=== PATIENT | male | born 1985 | race Caucasian/White ===

== ENCOUNTER 2018-07-20 12:56 | Emergency (ER) | payer OTHER ==
[~2018-07-20] VITALS: Ht 177.8 cm; Wt 86.2 kg
--- NOTE | 2018-07-20 13:37 | PHYS DOC ---
Past History Past Medical History: Other Additional Past Medical Histor: chronic back pain Additional Past Surgical Histo: valve replacement and thoracic aneurysm repair Smoking: Non-smoker Alcohol Use: None Drug Use: None Adult General Chief Complaint Chief Complaint: CHEST PAIN HPI HPI Patient is a 33-year-old male presents with left-sided chest pain that began early this morning, worse with exertion as well as deep breaths. Denies any recent PE risk factors. 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 Patient denies any lower extremities swelling. Denies any cough. Denies any fever. He shouldn't has taken no medicines to help with discomfort. No nausea, vomiting, diaphoresis.[] Review of Systems Review of Systems Constitutional: Denies fever or chills [] Eyes: Denies change in visual acuity, redness, or eye pain [] HENT: Denies nasal congestion or sore throat [] Respiratory: Denies cough or shortness of breath [] Cardiovascular: No additional information not addressed in HPI [] GI: Denies abdominal pain, nausea, vomiting, bloody stools or diarrhea [] : Denies dysuria or hematuria [] Musculoskeletal: Denies back pain or joint pain [] Integument: Denies rash or skin lesions [] Neurologic: Denies headache, focal weakness or sensory changes [] Endocrine: Denies polyuria or polydipsia [] All other systems were reviewed and found to be within normal limits, except as documented in this note. Allergies Allergies Allergies Coded Allergies Type Severity Reaction Last Updated Verified Penicillins Allergy Severe 07/20/18 Yes Sulfa (Sulfonamide Antibiotics) Allergy Severe 07/20/18 Yes duloxetine Allergy Severe 07/20/18 Yes Physical Exam Physical Exam Constitutional: Well developed, well nourished, no acute distress, non-toxic appearance. [] HENT: Normocephalic, atraumatic, bilateral external ears normal, oropharynx moist, no oral exudates, nose normal. [] Eyes: PERRLA, EOMI, conjunctiva normal, no discharge. [] Neck: Normal range of motion, no tenderness, supple, no stridor. [] Cardiovascular:Heart rate regular rhythm, no murmur [] Lungs & Thorax: Bilateral breath sounds clear to auscultation [] Abdomen: Bowel sounds normal, soft, no tenderness, no masses, no pulsatile masses. [] Skin: Warm, dry, no erythema, no rash. [] Back: No tenderness, no CVA tenderness. [] Extremities: No tenderness, no cyanosis, no clubbing, ROM intact, no edema. [] Neurologic: Alert and oriented X 3, normal motor function, normal sensory function, no focal deficits noted. [] Psychologic: Affect normal, judgement normal, mood normal. [] Current Patient Data Vital Signs Vital Signs Date Time Temp Pulse Resp B/P (MAP) Pulse Ox O2 Delivery O2 Flow Rate FiO2 07/20/18 13:02 98.3 91 20 96 Room Air EKG EKG EKG shows a sinus rhythm at 86 bpm, no ST elevation, normal axis, QTC of 451 ms , interpreted by me at 1306[] Radiology/Procedures Radiology/Procedures PROCEDURE: CHEST PA LATERAL CLINICAL INDICATION: LEFT SIDE CHEST PAIN COMPARISON: None FINDINGS: Median sternotomy. Prosthetic cardiac valve. No pneumothorax identified. Cardiac and mediastinal contours unremarkable. No pulmonary consolidation or acute airspace disease. No acute osseous abnormalities identified. IMPRESSION: No pulmonary consolidation or acute airspace disease. Electronically signed by: Andre Irving DO (07/20/2018 1:49 PM) [id number] [] Course & Med Decision Making Course & Med Decision Making Pertinent Labs and Imaging studies reviewed. (See chart for details) ED course: Patient arrived, was placed in bed, in tolerated exam well. He had minimal relief with the ketorolac and he had taken aspirin at home. He was given tramadol for additional pain relief. Medical decision making: Patient with a heart score of 1, believe this to be low likelihood but I'm obtaining a 3 hour troponin. No evidence of pneumonia or pneumothorax. No evidence of pancreatitis. Patient's d-dimer is normal so doubt pulmonary embolism. There is no evidence of esophageal rupture and no evidence of a recurrent thoracic aneurysm. Repeat troponin was obtained and was again undetectable. Review of [facility] shows multiple narcotic prescriptions essentially with one provider for the past 2 years. Most recent prescription was for 90 oxycodone 10 mg tablets on 07/11/2018[] Dragon Disclaimer Dragon Disclaimer This electronic medical record was generated, in whole or in part, using a voice recognition dictation system. Departure Departure: Impression: Primary Impression: Chest pain Disposition: HOME, SELF-CARE Condition: IMPROVED Referrals: PCP,NO (PCP) Patient Instructions: Chest Pain (Nonspecific) Additional Instructions: Follow-up with your regular doctor, call tomorrow to set up an appointment within the next 2 days. Return to the ER if worsening pain, difficulty breathing , or any other concerns. Problem Qualifiers Primary Impression: Chest pain Chest pain type: unspecified Qualified Codes: R07.9 - Chest pain, unspecified LEDA RIVAS DO Jul 20, 2018 13:37
[2018-07-20 13:45] LABS: BASO % 1 % (0-3); EOS # 0.1 x10^3/uL (0.0-0.7); EOS % 1 % (0-3); HEMATOCRIT 41.5 % (39.0-53.0); HEMOGLOBIN 14.7 g/dL (13.0-17.5); LYMPH # 1.1 x10^3/uL (1.0-4.8); LYMPH % 22 % (24-48); MEAN CORPUSCULAR HEMOGLOBIN 31 pg (25-35); MEAN CORPUSCULAR HGB CONC 35 g/dL (31-37); MEAN CORPUSCULAR VOLUME 86 fL (79-100); MONO # 0.4 x10^3/uL (0.0-1.1); MONO % 7 % (0-9); NEUT # 3.5 x10^3uL (1.8-7.7); NEUT % 69 % (31-73); PLATELET COUNT 269 x10^3/uL (140-400); RED CELL DISTRIBUTION WIDTH 12.5 % (11.5-14.5)
[2018-07-20] MEDS ORDERED: ASPIRIN 81 MG TAB.CHEW PO ONE (13:45)
[2018-07-20] MEDS ORDERED: KETOROLAC 15 MG/ML VIAL. IV ONE (13:45)
--- NOTE | 2018-07-20 13:51 | RAD ---
PROCEDURE: CHEST PA LATERAL CLINICAL INDICATION: LEFT SIDE CHEST PAIN COMPARISON: None FINDINGS: Median sternotomy. Prosthetic cardiac valve. No pneumothorax identified. Cardiac and mediastinal contours unremarkable. No pulmonary consolidation or acute airspace disease. No acute osseous abnormalities identified. IMPRESSION: No pulmonary consolidation or acute airspace disease. Electronically signed by: Andre Irving DO (07/20/2018 1:49 PM) [id number]
[2018-07-20 14:06] LABS: ALBUMIN 4.3 g/dL (3.4-5.0); ALBUMIN/GLOBULIN RATIO 1.3 (1.0-1.7); CALCIUM 8.8 mg/dL (8.5-10.1); GFR 86.1; MAGNESIUM 1.9 mg/dL (1.8-2.4); POTASSIUM 3.6 mmol/L (3.5-5.1); TOTAL BILIRUBIN 0.6 mg/dL (0.2-1.0); TOTAL PROTEIN 7.6 g/dL (6.4-8.2)
[2018-07-20] MEDS ORDERED: traMADol 50 MG TABLET PO ONE (15:30)
[2018-07-20 16:40] VITALS: BP 127/74
--- NOTE | 2018-07-21 22:54 | EKG ---
[address] [address] Test Date: 2018-07-20 Test Time: 13:06:25 Pat Name: BRANDON POWERS Department: Room: Gender: M [employer]: HOWARD : 1985 Requested By: LEDA RIVAS Order Number: [id number] Reading MD: Measurements Intervals [place] Rate: 86 P: 0 MI: 152 QRS: 65 QRSD: 86 T: 27 QT: 374 QTc: 451 Interpretive Statements SINUS RHYTHM NORMAL ECG RI6.01 No previous ECG available for comparison
== END 2018-07-20 16:49 | disposition home or self-care (01) ==
LOC: ER 12:56
DX: R07.89 Other chest pain (principal); G89.29 Other chronic pain; M54.89 Other dorsalgia; Z88.2 Allergy status to sulfonamides; Z88.0 Allergy status to penicillin; Z88.8 Allergy status to other drugs, medicaments and biological substances
CPT/HCPCS: 36415; 71046; 80053; 83690; 83735; 83880; 84484; 85025; 85379; 85610; 93005; 96374; 99284; J1885